=== PATIENT | female | born 1960 | race African-American/Black ===

== ENCOUNTER 2016-11-07 07:01 | Observation (INO) | payer BC ==
[~2016-11-07 07:01] MED LIST: RINGERS SOLUTION,LACTATED 1,000 ML IV PRN; ceFAZolin SODIUM 2 GM in DEXTROSE 5 % IN WATER 50 ML IV PRN
--- OUTSIDE RECORDS SUMMARY | 2016-11-07 07:04 | XMS REPORT | Summary of Care ---
:1960 Author Organization [facility] Address [address] [place] [address] Encounter Date(s): 09/11/16 - 09/11/16 [facility] [address] [place] [id number] [facility] Discharge Disposition: 01 Discharged to Home or Self Care Attending Physician: Jennifer Abbasi MD Vital Signs No data available for this section Problem List Condition Effective Dates Status Health Status Informant Arthritis(Confirmed) Active Asthma(Confirmed) Active Atrial fibrillation(Confirmed) Active Depression(Confirmed) Active GERD - Gastro-esophageal reflux Active disease(Confirmed) Hypertension(Confirmed) Active Hypothyroidism-acquired(Confirmed) Active Osteoarthritis-in joints(Confirmed) Active PUD - Peptic ulcer disease(Confirmed) Active 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 Allergies, Adverse Reactions, Alerts Substance Reaction Severity Status penicillins Active Medications aspirin 81 mg oral delayed release tablet 1 tab(s), Oral, Daily, 0 Refill(s) Start Date: 02/08/14 Status: OrderedMaxzide tab(s), Oral, Daily, 0 Refill(s) Start Date: 02/08/14 Status: Orderedmultivitamin Daily, 0 Refill(s) Start Date: 02/08/14 Status: OrderedNeurontin 300 mg oral capsule 2 cap(s), Oral, TID, 0 Refill(s) Start Date: 02/08/14 Status: OrderedPercocet 5/325 oral tablet 2 tab(s), Oral, q6hr, PRN for pain, 0 Refill(s) Start Date: 02/08/14 Status: Orderedpotassium chloride 20 mEq oral tablet, extended release 1 tab(s), Oral, BID, with food, 0 Refill(s) Special Instructions: with food Start Date: 02/08/14 Status: OrderedPrevacid 30 mg oral delayed release capsule 1 cap(s), Oral, BID, 0 Refill(s) Start Date: 02/08/14 Status: Orderedsotalol 120 mg oral tablet 1 tab(s), Oral, BID, 0 Refill(s) Start Date: 02/08/14 Status: OrderedSynthroid 125 mcg (0.125 mg) oral tablet 1 tab(s), Oral, Daily, 0 Refill(s) Start Date: 02/08/14 Status: Orderedtriamterene-hydrochlorothiazide 37.5 mg-25 mg oral tablet 1 tab(s), Oral, Daily, 0 Refill(s) Start Date: 02/08/14 Status: OrderedVESIcare 5 mg oral tablet 1 tab(s), Oral, Daily, 0 Refill(s) Start Date: 02/08/14 Status: OrderedWellbutrin XL 150 mg/24 hours oral tablet, extended release 3 tab(s), Oral, BID, 0 Refill(s) Start Date: 02/08/14 Status: Ordered Results No data available for this section Immunizations No data available for this section Procedures Procedure Date Related Diagnosis Body Site Knee replacement-RT 10/2012 L4/5 Hemilaminectomy & Partial Facetectomy 2012 Cholecystectomy 1986 Arthroscopy of knee-both LT and RT Reduction mammoplasty Social History No data available for this section Assessment and Plan No data available for this section
[2016-11-07 07:42] LABS: Hematocrit 40.4 % (37.0-47.0); Hemoglobin 13.1 gm/dL (12.5-16.0); Mean Cell Volume 82.4 fl (78-100); Mean Corpuscular Hemoglobin 26.7 pg (27-31); Mean Corpuscular Hgb Conc 32.4 g/dl (32-36); Mean Platelet Volume 9.6 fl (6.0-9.5); Neutrophil # 6.3 K/mm3 (1.3-6.0); Neutrophil % 70.3 % (42-75.0); Platelet Count 350 K/mm3 (150-450); Red Cell Distribution Width 17.7 % (11.5-14.0)
[2016-11-07 07:48] LABS: Albumin * 3.2 gm/dl (3.4-5.0); Anion Gap 10.3 mmol/L (6.8-13.8); BUN/Creatinine Ratio 10.3 (9.0-21.6); Bilirubin, Total 0.2 mg/dL (0.0-1.1); Ca. Corrected For Albumin 8.6 mg/dL (8.4-10.2); Calcium * 8.3 mg/dL (7.9-10.9); Carbon Dioxide 27.6 mmol/L (24-32.6); Potassium 3.9 mmol/L (3.4-4.6)
[2016-11-07] MEDS ORDERED: RINGERS SOLUTION,LACTATED 1,000 ML IV ONE ×4 (08:52→19:15)
[2016-11-07] MEDS ORDERED: oxyCODONE HCL/ACETAMINOPHEN 1 TAB TABLET PO PRN ×2 (13:43→19:17)
[2016-11-07] MEDS ORDERED: IBUPROFEN 800 MG TABLET PO PRN (13:43)
[2016-11-07] MEDS ORDERED: RINGERS SOLUTION,LACTATED 1,000 ML IV PRN (13:43)
--- NOTE | 2016-11-07 16:31 | OR ---
Operative Report - Dictated Report Narrative: DATE OF PROCEDURE: 11/07/2016 PROCEDURE: 1. Total laparoscopic hysterectomy, bilateral salpingectomy 2. Lysis of adhesion (90 min) 3. Diagnostic cystoscopy ANESTHESIA: General, endotracheal intubation. PREOPERATIVE DIAGNOSES: 1. Menorrhagia 2. Mutiple fibroids 3. Enlarged uterus 4. Anemia 5. S/P history of open cholecystectomy 6. S/P right salpingectomy/RSO? and tubal ligation. POSTOPERATIVE DIAGNOSES: 1. Menorrhagia 2. Mutiple fibroids, with a lower uterine segment fibroid 2-3 cm. 3. Enlarged uterus 4. Anemia 5. S/P history of open cholecystectomy 6. History of left salpingectomy (not the right side) and tubal ligation 7. Pelvic adhesions and upper abdomen adhesions. 8. Left ureteral orifice cystic lesion SURGEON: Marisol Woodard M.D. RN NEUROLOGY: Penelope Calderon FINDINGS: 1. Large amount of omental adhesions in the upper abdomen from prior cholecystectomy obliterating the views to the liver, stomach and diaphragms. 2. There were omentum adhesions to the left lower abdomen, omental adhesions to the uterus, and adhesions of bowel to the posterior cul-de-sac, adhesions of right ovary to the uterus, and right parametrium adhesions. 3. There were evidences of missing left tube (likely from prior tubal surgery) and tubal ligation of the right tube. 4. Uterus was enlarged about 15 week size with a lower uterine segment fibroid 2 -3 cm. Both ovaries appeared normal. 5. On cystoscopy, the bladder appeared intact and bilateral ureteral jets were seen. There was a cystic lesion near the left ureteral orifice. SPECIMENS: Uterus, cervix, and both tubes (left tubal remnant) DRAINS: None. URINE OUTPUT: 800 ml BLOOD LOSS: 250 ml INTRAOPARATIVE IV FLUIDS: 2700 ml COMPLICATIONS: None. DESCRIPTION OF PROCEDURE: The patient consented to the operation and was taken to the operating room. She was placed on the operating table supine. SCDs were placed on her lower extremities. General anesthesia was induced. Two grams of ancef was given by IV prior to anesthesia induction. She was repositioned in the dorsal lithotomy position. Her right arm was tucked at her side under the drape. Exam under anesthesia revealed an enlarged uterus with no adnexal mass. The abdomen was prepped with Chloraprep and the vagina was prepped with Betadine. She was draped in the usual sterile fashion. A time-out procedure was conducted to confirm the correct patient for the correct procedure. After time-out, a Lopez catheter was placed into the bladder. A bivalve speculum was placed into the vagina. The vagina and the cervix were prepped with Betadine one more time. The anterior cervix was grasped with a single-tooth tenaculum. The uterus was sounded to 12 cm. A large VCare uterine manipulator was inserted into the uterine cavity. The balloon was inflated with 5 cc of air. The single-tooth tenaculum was removed. [place] speculum was removed. The upper VCare cup was advanced into the vagina to hug the cervix. The lower VCare cup was advanced into the vagina to align with the upper VCare cup and to provide pneumoperitoneum for the procedure. The lower VCare cup was fastened to the uterine manipulator. The surgeon then changed gloves and attention was paid to the abdomen. A small vertical incision was made at the lower edge of the umbilicus. A Veress needle was inserted into the abdominal cavity. Intraabdominal placement was confirmed with a saline drop test and with low entry pressure of 4 mmHg. The abdomen was insufflated with CO2 gas to an intraabdominal pressure of 15 mmHg. The Veress needle was removed. A 5 mm trocar with the laparoscope was inserted through the umbilicus incision into the abdomen. Intraabdominal placement was confirmed with the laparoscope. Survey of the entry site revealed no trauma to the underlying structures. Survey of the upper abdomen and the pelvis revealed findings note above. The patient was then placed in Trendelenburg position. Some omentum adhesions near the left lower abdomen were taken down with the Thunderbeat. Three 5 mm trocars were placed in the lower abdomen. Both left and right lower quadrant trocars (5 mm) were placed at a place 2 cm above and 2 cm medial to the anterior superior iliac spine to avoid vessels and nerves. A third suprapubic trocar (5 mm) was placed in the midline. All trocars were placed under the direct visualization of the laparoscope. The omentum adhesions to the uterus were released with the Thunderbeat. Attention was now turned to the left side. The left fallopian tubal remnant was elevated. The mesosalpinx was divided with the Thunderbeat. The division was carried to the cornual region. The uteroovarian ligament was divided with the Thunderbeat and the division was carried on the broad ligament to the round ligament towards the lower uterine segment. The course of the left ureter was not identified, but believed to be away from the surgical field. The broad ligament incision was into the anterior leaf and the posterior leaf. Anterior leaf of the broad ligament was dissected towards the bladder uterine reflection. The posterior leaf of the broad ligament was dissected towards the uterosacral ligament. There was a 2-3 cm size fibroid in the lower uterine segment. This obstructed our view to access the vaginal cup of the uterine manipulator. Careful dissection was performed here. The left uterine vessel was isolated and divided with the Thunderbeat. There was bleeding from the uterine vessel and this was secured with an endoloop. The lower uterine segment was dissected partially on this side. The cardinal ligament complex was divided with the Thunderbeat to the level of vaginal cervical junction. Attention was now turned to the right side. The right ovary and tube were adherent to the uterus. These were dissected with the Thunderbeat. The mesosalpinx was divided with the Thunderbeat. The uteroovarian ligament was divided with the Thunderbeat and the division was carried on the broad ligament to the round ligament towards the lower uterine segment. The course of the right ureter was identified and protected. The broad ligament incision was into the anterior leaf and the posterior leaf. The anterior leaf of the broad ligament was dissected towards the bladder uterine reflection. Here the lower uterine segment fibroid was obstructing our view. The posterior leaf of the broad ligament was dissected towards the uterosacral ligament. There were adhesions and distortion of the right uterine vessel. Careful dissection was performed here. The right uterine vessel was isolated, and divided with the Thunderbeat. There was some bleeding here and was controlled with the Thunderbeat. The cardinal ligament complex was divided with the Thunderbeat to the level of vaginal cervical junction. Due to the large size of the uterus and adhesions, it was decided to complete the rest of the procedure through a total laparoscopic approach. Now the vaginal fornix was able to seen well through the VCare cup. The Thunderbeat was used to make an anterior colpotomy over the VCare cup groove. Entry into the vagina was without complications. A circumferential incision was made along the vaginal cervical junction using the VCare cup groove as a guide. Bilateral uterosacral ligament was divided. The cervix was completely divided from the vagina. The surgeon moved to the vaginal area to retrieve the specimen. The VCare uterine manipulator was removed. The cervix with the uterus and both tubes were removed through the vagina in one piece. The vagina was packed with 2 moist laps to keep the pneumoperitoneum. The surgeon then changed gloves and attention was paid back to the abdomen. The pelvis was thoroughly irrigated with saline. The vaginal opening was closed with interrupted 0 Vicryl Endoknot suture in a transverse fashion using intracorporeal suturing technique and extracorporeal knot tying. The uterosacral ligament at each side was sutured to the vaginal cuff corner for cuff support. The pelvis was irrigated with saline. Extra fluid was suctioned out from the abdomen and pelvis. There was hemostasis in all vessel pedicles. The patient was taken out of Trendelenburg Three lower abdominal trocars were removed. The abdomen was deflated. The trocar at the umbilicus was removed with the laparoscope. The skin incision was closed with 4-0 Monocryl suture and was covered with Steri-Strips. Next, a diagnostic cystoscopy was performed. Vaginal packing was removed and the Lopez catheter was removed. A 70-degree cystoscope was introduced through the urethra into the bladder. Exam of the bladder revealed the bladder was intact. There were urine jets coming out from the left as well as the right ureteral orifice, confirming the integrity of ureters. There was a cystic lesion near the left ureteral orifice. Picture was taken. The cystoscope was removed. The Lopez catheter was not replaced. The patient tolerated the procedure well. All counts were correct and the patient was taken to the recovery room in stable condition. Marisol Woodard MD
[2016-11-07] MEDS ORDERED: PROMETHAZINE HCL 12.5 MG in DEXTROSE 5 % IN WATER 50 ML IV PRN ×4 (17:06→19:14)
--- NOTE | 2016-11-07 19:07 | PN ---
Subjective - Date and Time Seen Date: 11/07/16 Subjective Narrative: Post op note patient evaluated, post op 6 hours. patient has uncontrolled nausea and vomited a couple times now. just completed phenergan ivpb and this did not help. patient's requested to stay overnight due to nausea and vomiting. otherwise, she is doing well. voided, 400 ml. pain controlled and rates at 5/10 now. Exam: NAD Breathing unlabored. Abdomen: non-distended, soft, incisions dry and clean. Ext: SCD in place. Plan: will keep overnight for observation due to uncontrolled nausea and vomiting. Marisol Woodard MD Objective - Vitals Vitals: Last Vital Signs Temp 36.1 C L 11/07/16 14:05 Pulse 16 L 11/07/16 18:30 Resp 16 11/07/16 18:15 BP 162/78 11/07/16 18:15 Pulse Ox 95 11/07/16 18:30 - Abnormal Lab Findings Abnormal Lab Findings: Abnormal Lab Results 11/07/16 11/07/16 Range/Units 07:16 07:16 MCH 26.7 L (27-31) pg RDW 17.7 H (11.5-14.0) % MPV 9.6 H (6.0-9.5) fl Lymphocytes % 14.3 L (20-51) % Eosinophils % 7.6 H (0.0-3.0) % Neutrophils # 6.3 H (1.3-6.0) K/mm3 Lymphocytes # 1.3 L (1.5-3.5) k/mm3 Est GFR (Non-Af Amer) 140 H D (60-130) mL/min ALT 18 L (19-67) U/L Albumin 3.2 L (3.4-5.0) gm/dl
[2016-11-07] MEDS ORDERED: FAMOTIDINE 20 MG in DEXTROSE 5 % IN WATER 100 ML IV ONE ×2 (19:24)
[2016-11-07] MEDS ORDERED: LISINOPRIL 10 MG TABLET PO SCH (19:30)
[2016-11-08] MEDS ORDERED: LISINOPRIL 20 MG TABLET PO SCH (09:00)
--- NOTE | 2016-11-08 09:59 | DS ---
(1) Menorrhagia Problem: Acute (2) Uterine fibroid Problem: Acute (3) Enlarged uterus Problem: Acute (4) Pelvic adhesions Problem: Acute (5) Post-operative nausea and vomiting Problem: Acute (6) History of anemia Problem: Acute Description of Stay: Post op day 1, s/p TLH, BS, PAIGE and cystoscopy. Nausea and vomiting resolved. Doing well today. Tolerated her diet. Ambulating well. voided. pain controlled and rates at 3/10. Exam: NAD Breathing non-labored. Abdomen: non-distended, soft, incisions dry and clean. Ext: no edema or calf tenderness. Plan: will discharge home today. Procedures Performed: see notes below - TLH, BS, lysis of adhesions, and cystoscopy Discharge Disposition: Home self care Disposition: Home self-care Condition: Good Discharge Activity: Activity as tolerated, No Lifting Discharge Diet: General/regular food Additional Patient Instructions (free text): Follow-up in the office with Dr. Woodard in 7-10 days. Complete Home Medications List: Complete Home Medication List: Aspirin [Aspirin Chewable] 81 mg PO DAILY 02/25/14 Docusate Sodium [Colace] 100 mg PO BID 02/25/14 Ferrous Sulfate [Iron] 325 mg PO DAILY 02/25/14 Calcium/Magnesium/Vit D3 [Calcium 500 mg Tablet] 1 each PO DAILY 10/17/16 Cholecalciferol (Vitamin D3) [Vitamin D3] 1,000 unit PO DAILY 10/17/16 FLUoxetine HCL [Fluoxetine HCl] 20 mg PO DAILY 10/17/16 Folic Acid/Vit B Complex and C [Super B-Complex Folic-Vit C Tb] 400 mcg PO DAILY 10/17/16 Furosemide [Lasix] 20 mg PO DAILY 10/17/16 Lansoprazole [Prevacid] 30 mg PO BID 10/17/16 Levothyroxine Sodium [Synthroid] 125 mcg PO DAILY 10/17/16 Lisinopril [Zestril] 20 mg PO DAILY 10/17/16 Sotalol HCl [Sotalol] 120 mg PO BID 10/17/16 oxyCODONE HCL/ACETAMINOPHEN [Percocet 5-325 mg Tablet] 1 each PO Q4H PRN HYDROcodone/ACETAMINOPHEN [[place] 5-325 Tablet] 1 tab PO Q4H PRN #30 tab Ibuprofen [Motrin] 800 mg PO Q8H PRN #30 tablet 11/07/16 Promethazine HCl [Phenergan] 12.5 mg PO Q4H PRN #20 tab 11/07/16
[2016-11-08 10:12] VITALS: BP 158/66
== END 2016-11-08 11:00 | disposition home or self-care (01) ==
LOC: AMB 07:01 → MS 19:16
PROVIDERS: ADMIT Obstetrics & Gynecology; ATTEND Obstetrics & Gynecology
PROC: 0UTC7ZZ Resection of Cervix, Via Natural or Artificial Opening (ICD-10-PCS; 2016-11-07)
PROC: 0UT54ZZ Resection of Right Fallopian Tube, Percutaneous Endoscopic Approach (ICD-10-PCS; 2016-11-07)
PROC: 0UT9FZZ Resection of Uterus, Via Natural or Artificial Opening With Percutaneous Endoscopic Assistance (ICD-10-PCS; principal; 2016-11-07 08:00)
DX: N92.0 Excessive and frequent menstruation with regular cycle (principal); D25.1 Intramural leiomyoma of uterus; N28.89 Other specified disorders of kidney and ureter; R11.2 Nausea with vomiting, unspecified; D62 Acute posthemorrhagic anemia; B67.99 Other echinococcosis; N73.6 Female pelvic peritoneal adhesions (postinfective)
CPT/HCPCS: 36415; 58554; 80053; 84703; 85025; 86850; 86900; 88307; 96365; G0378

== ENCOUNTER 2017-10-31 07:13 | Day surgery (SDC) | payer BC ==
[~2017-10-31 07:13] MED LIST changes: +RINGER'S SOLUTION,LACTATED 1,000 ML IV PRN; -RINGERS SOLUTION,LACTATED 1,000 ML IV PRN; +ceFAZolin SODIUM 1 GM VIAL IV PRN; -ceFAZolin SODIUM 2 GM in DEXTROSE 5 % IN WATER 50 ML IV PRN
[2017-10-31] MEDS ORDERED: RINGER'S SOLUTION,LACTATED 1,000 ML IV ONE (07:51)
[2017-10-31] MEDS ORDERED: ceFAZolin SODIUM 1 GM VIAL IV ONE (08:15)
[2017-10-31 09:35] VITALS: BP 124/64
== END 2017-10-31 07:14 | disposition home or self-care (01) ==
LOC: AMB 07:13
PROVIDERS: ATTEND Urology
PROC: 0T7D8ZZ Dilation of Urethra, Via Natural or Artificial Opening Endoscopic (ICD-10-PCS; principal; 2017-10-31)
DX: N32.89 Other specified disorders of bladder (principal); N35.9 Urethral stricture, unspecified; I10 Essential (primary) hypertension; E03.9 Hypothyroidism, unspecified; K21.9 Gastro-esophageal reflux disease without esophagitis; I48.91 Unspecified atrial fibrillation; F32.9 Major depressive disorder, single episode, unspecified; F17.210 Nicotine dependence, cigarettes, uncomplicated; Z68.31 Body mass index [BMI] 31.0-31.9, adult